=== PATIENT | female | born 1975 | race Caucasian/White ===

== ENCOUNTER 2018-03-14 07:12 | Day surgery (SDC) | payer OTHER ==
--- NOTE | 2018-03-14 09:16 | CP.SDSHP ---
Same Day Surgery H & P - History Proposed Procedure: EGD Pre-Op Diagnosis: SEE NOTES - Previous Medical/Surgical History Pain: 4.Moderate Pain - Allergies Allergies: Allergies No Known Allergies Allergy (Verified 03/14/18 07:33) - Physical Exam General Appearance: N Vital Signs: Vital Signs 03/14/18 03/14/18 07:30 07:32 Temperature 97.0 F L Pulse Rate 58 L 58 L Respiratory 19 Rate Blood Pressure 120/83 O2 Sat by Pulse 98 Oximetry Mental Status: Alert & Oriented x3 Neuro: WNL Heart: WNL Lungs: WNL GI: Other - {Optional Preform as Required} Breast: WNL Abdomen: Other Rectal: Other Integument: WNL : WNL Ortho: WNL ENT: WNL - Impression Pt. Evaluated Today:Candidate for Anesthesia & Procedure: Yes - Date & Time Time: 09:20 Short Stay Discharge - Short Stay Discharge Admitting Diagnosis/Reason for Visit: FUNCTIONAL DYSPEPSIA Disposition: HOME/ ROUTINE Referrals: Sarah Kim MD [Primary Care Provider] -
[2018-03-14] MEDS ORDERED: Lactated Ringer's 1,000 ML IV ONE (09:20)
[2018-03-14] MEDS ORDERED: Propofol 10 mg/ml Inj (20 ML) ONE (09:22)
[2018-03-14 10:09] VITALS: O2SAT 100
[2018-03-14 11:03] VITALS: TEMP 97.4
[2018-03-14 11:09] VITALS: BP 111/60; PULSE 65; RESP 16
== END 2018-03-14 10:45 | disposition home or self-care (01) ==
LOC: C.ENDO 07:12
PROVIDERS: ATTEND Specialist
DX: K20.9 Esophagitis, unspecified (principal); K29.50 Unspecified chronic gastritis without bleeding; K30 Functional dyspepsia
CPT/HCPCS: 43239; 82948; 84703; 88305; C9113; J0171; J2001; J2704; J2765; J7120